=== PATIENT | male | born 1995 | race Caucasian/White ===

== ENCOUNTER 2016-12-18 22:41 | Emergency (ER) | payer BC, OTHER ==
--- NOTE | 2016-12-18 23:11 | EDM.PDOC ---
ED HPI GENERAL MEDICAL PROBLEM - General Chief Complaint: ENT Problem Stated Complaint: TOOTH PAIN Time Seen by Provider: 12/18/16 22:58 Source of Information: Reports: Patient, RN Notes Reviewed - History of Present Illness INITIAL COMMENTS - FREE TEXT/NARRATIVE: 21-year-old male comes in with severe dental pain. His left upper posterior molar has been chipped off for quite a long time but just started hurting him badly yesterday. He is not able to sleep much at all last night. Continued today. He is to obtain some relief with Orajel but does not last for very long. In throbbing is become more severe again tonight. No fever or chills. This has been pressure sensitive. No throat pain or swelling. Tooth/Teeth Pain Score (Numeric/FACES): 8 - Related Data Allergies Allergy/AdvReac Type Severity Reaction Status Date / Time No Known Allergies Allergy Verified 12/18/16 22:50 Home Meds: Home Meds . [No Known Home Meds] 12/18/16 [History] Social & Family History - Family History Family Medical History: Noncontributory - Tobacco Use Smoking Status *Q: Current Every Day Smoker Years of Tobacco use: 5 Packs/Tins Daily: 0.5 - Caffeine Use Caffeine Use: Reports: Coffee, Energy Drinks - Recreational Drug Use Recreational Drug Use: No ED ROS ENT - Review of Systems Review Of Systems: See Below Constitutional: Denies: Fever, Chills HEENT: Reports: Dental Pain. Denies: Throat Pain Respiratory: Denies: Shortness of Breath Cardiovascular: Denies: Chest Pain GI/Abdominal: Denies: Abdominal Pain, Nausea, Vomiting Musculoskeletal: Reports: No Symptoms Skin: Reports: No Symptoms Neurological: Reports: No Symptoms ED EXAM, ENT - Physical Exam Exam: See Below General Appearance: Alert, Moderate Distress Nose: Normal Inspection Mouth/Throat: Dental Pain (Left upper posterior molar tender to touch, there is some very mild swelling and inflammation of the boom medially. No drainage. Pharynx is normal, remainder teeth look normal.) Head: No: Facial Swelling, Facial Tenderness Neck: Supple, Non-Tender. No: Lymphadenopathy (L), Lymphadenopathy (R) Respiratory/Chest: No Respiratory Distress Neurological: Alert, Oriented, No Motor/Sensory Deficits Skin: Warm, Dry, Normal Color, No Rash Course - Vital Signs Last Recorded V/S: Last Vital Signs Temp 96.5 F 12/18/16 22:47 Pulse 90 12/18/16 22:47 Resp 18 12/18/16 22:47 BP 150/76 H 12/18/16 22:47 Pulse Ox 100 12/18/16 22:47 Departure - Departure Time of Disposition: 23:25 Disposition: Home, Self-Care 01 Condition: Fair Clinical Impression: Pain, dental - Discharge Information Instructions: Dental [facility] Referrals: PCP,None [Primary Care Provider] - Forms: ED Department Discharge Additional Instructions: Amoxicillin 2 500 mg tablets or 1000 mg twice daily, Aleve one tablet 3 times daily with food for pain and inflammation, Tylenol in between doses of Aleve for extra pain relief or hydrocodone 1-2 tabs every 4-6 hours as needed for severe pain, do not take Tylenol and hydrocodone at the same time, do not drive or work when taking hydrocodone, see your dentist as planned.
== END 2016-12-18 23:14 | disposition home or self-care (01) ==
LOC: JD.ED 22:41
DX: K08.89 Other specified disorders of teeth and supporting structures (principal); F17.210 Nicotine dependence, cigarettes, uncomplicated
CPT/HCPCS: 99283

== ENCOUNTER 2017-01-02 | Emergency (ER) | payer OTHER ==
--- NOTE | 2017-01-02 00:16 | EDM.PDOC ---
ED HPI GENERAL MEDICAL PROBLEM - General Chief Complaint: Chest Pain Stated Complaint: CHEST PAIN NUMBNESS Time Seen by Provider: 01/02/17 00:15 Source of Information: Reports: Patient, Family (girlfriend.) History Limitations: Reports: No Limitations - History of Present Illness INITIAL COMMENTS - FREE TEXT/NARRATIVE: 21-year-old male presents the ED with chief complaint of severe pain in the epigastrium left upper quadrant of the abdomen i.e. sharp and stabbing. Pain in the left side of his neck sore throat. Patient aware of increased anxiety over the last few days and monitor reveals a sinus tachycardia at 1 60/m. Clinically he is extremely anxious. He feels hot and flushed to palpation. He reports being on amoxicillin for almost 14 days for a dental infection left upper mandible which has reduce swelling and pain. Reports bowel function is been extremely sluggish last few days and last bowel movement was extremely painful and difficult to pass today hard stool. Associated poor appetite. He reports there was a of his sister's biological mother today due to renal failure and this is created increased anxiety. Has intermittent nausea with no vomiting. Reports appetite is been extremely poor. Onset: Today, Sudden Onset Date: 01/02/17 Onset Time: 23:00 Duration: Hour(s): Location: Reports: Neck (Sharp and stabbing. Pain left side of neck.), Chest, Abdomen Quality: Reports: Sharp, Stabbing Severity: Severe Improves with: Reports: None (10 out of 10.) Worsens with: Reports: Movement Context: Denies: Activity, Exercise, Lifting, Sick Contact, Trauma, Other Associated Symptoms: Reports: Chest Pain (Nonproductive for the most part see history of present illness), Cough, Headaches, Loss of Appetite, Malaise, Nausea /Vomiting, Shortness of Breath (Constipation), Other. Denies: Diaphoresis, Fever/Chills, Rash (Nausea without vomiting) Treatments [employer]: Reports: NSAIDS (Took Advil 2 days ago.) Bilateral Chest Pain Score (Numeric/FACES): 10 - Related Data Allergies Allergy/AdvReac Type Severity Reaction Status Date / Time No Known Allergies Allergy Verified 01/02/17 00:04 Home Meds: Home Meds Doxycycline [Vibramycin] 100 mg PO Q12HR #14 cap 01/02/17 [Rx] Past Medical History Cardiovascular History: Reports: Heart Murmur Other Cardiovascular History: As Social & Family History - Family History Family Medical History: Noncontributory - Tobacco Use Smoking Status *Q: Current Every Day Smoker Years of Tobacco use: 5 Packs/Tins Daily: 1 - Caffeine Use Caffeine Use: Reports: Coffee, Energy Drinks - Alcohol Use Days Per Week of Alcohol Use: 1 Number of Drinks Per Day: 5 Total Drinks Per Week: 5 - Recreational Drug Use Recreational Drug Use: Yes Drug Use in Last 12 Months: No Recreational Drug Type: Reports: Cocaine, Marijuana/Hashish (Almost daily due to prevention of headaches.) Recreational Drug Use Frequency: Not Used In Over 6 Months ED ROS GENERAL - Review of Systems Review Of Systems: See Below Constitutional: Reports: Fever, Chills, Malaise, Weakness, Fatigue, Decreased Appetite, Weight Loss HEENT: Reports: Dental Pain (Resolved with oral antibiotic amoxicillin of which she has a few tablets left.) Respiratory: Reports: Shortness of Breath, Pleuritic Chest Pain, Cough. Denies : Wheezing, Sputum, Hemoptysis (Nonproductive for the most part) Cardiovascular: Reports: Chest Pain (Sharp stabbing anterior precordium.), Lightheadedness, Palpitations. Denies: Blood Pressure Problem, Claudication ( Also in the epigastrium and left upper quadrant abdomen.), Edema, Orthopnea Endocrine: Reports: Fatigue GI/Abdominal: Reports: Abdominal Pain, Constipation, Decreased Appetite : Reports: No Symptoms Musculoskeletal: Reports: Neck Pain. 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 hyperventilation syndrome. O2 sat is 98% on room air.) Eye Exam: Bilateral Eye: Normal Inspection Ears: Normal External Exam, Normal TMs Throat/Mouth: Other (Oropharynx is diffusely inflamed more so on the left on the right. Appears to be secondary to) Head: Atraumatic ( smoking.), Normocephalic Neck: Normal Inspection, Supple, Non-Tender, Full Range of Motion. No: Lymphadenopathy (L), Lymphadenopathy (R) Respiratory/Chest: Lungs Clear, Normal Breath Sounds, Chest Non-Tender, Respiratory Distress (Moderate respiratory distress i.e. hyperventilation syndrome). No: No Accessory Muscle Use, Rhonchi, Wheezing, Stridor, Pleural Rub , Accessory Muscle Use, Retractions, Splinting Cardiovascular: No Edema, No Gallop, No Murmur (No murmur detected at elevated heart rate.), Tachycardia (Monitor reveals sinus tachycardia at 1 60/m.) Peripheral Pulses: 2+: Posterior Tibial (L), Posterior Tibial (R), Dorsalis Pedis (L), Dorsalis Pedis (R) GI/Abdominal: Tender, Abnormal Bowel Sounds (Mildly hyperactive bowel sounds.), Other (Scaphoid abdomen. Palpable left hemicolon.). No: No Organomegaly, No Abnormal Bruit, No Mass, Pelvis Stable, Distended, Guarding (Tenderness in the epigastrium only without rebound or guarding.), Rebound (Male) Exam: No Hernia, Normal Prostate Back Exam: Normal Inspection, Full Range of Motion. No: CVA Tenderness (L), CVA Tenderness (R) Extremities: Normal Inspection, Normal Range of Motion, Non-Tender Neurological: Oriented, CN II-XII Intact, Normal Cognition Psychiatric: Anxious (Severely anxious i.e. panic attack.) Skin Exam: Warm, Dry, Intact, Normal Color, No Rash EKG INTERPRETATION EKG Date: 01/02/17 Time: 00:10 Rhythm: Other Rate (Beats/Min): 156 [place]: Normal P-Wave: Present QRS: Other (Left ventricular hypertrophy pattern. Initial poor R-wave progression.) ST-T: Other (ST segment depression in leads 23 and aVF. There is an associated diffuse early repolarization pattern likely due to rate..) QT: Normal EKG Interpretation Comments: Second ECG done after his pain was improved. Heart rate is down to 84/m. Still shows a left ventricular hypertrophy pattern but is due to his stature of a very thin fellow. Short period ago. Mild ST segment elevation now in leads V4 to V6 and lead 2. The previously noted ST segment depression in the inferior wall and anteroseptal wall or are now gone once rate is down to normal. Course - Vital Signs Last Recorded V/S: Last Vital Signs Temp 37.1 C 01/02/17 00:05 Pulse 168 H 01/02/17 00:05 Resp 24 H 01/02/17 00:05 BP 163/87 H 01/02/17 00:05 Pulse Ox 98 01/02/17 00:05 - Orders/Labs/Meds Orders: Active Orders 24 hr Category Date Time Status EKG Documentation Completion [RC] STAT Care 01/02/17 00:28 Active EKG Documentation Completion [RC] STAT Care 01/02/17 01:30 Active Abdomen 1V Flat [CR] Stat Exams 01/02/17 00:28 Taken Chest 1V Frontal [CR] Stat Exams 01/02/17 00:27 Taken Labs: Laboratory Tests 01/02/17 01/02/17 01/02/17 Range/Units 00:10 00:10 00:10 WBC 11.97 H (4.23-9.07) K/mm3 RBC 5.37 (4.63-6.08) M/mm3 Hgb 16.5 (13.7-17.5) gm/L Hct 46.4 (40.1-51.0) % MCV 86.4 (79.0-92.2) fl MCH 30.7 (25.7-32.2) pg MCHC 35.6 H (32.2-35.5) g/dl RDW Std Deviation 41.1 (35.1-43.9) fL Plt Count 222 (163-337) K/mm3 MPV 10.4 (9.4-12.3) fl Neutrophils % (Manual) 65 H (40-60) % Band Neutrophils % 0 (0-10) % Lymphocytes % (Manual) 26 (20-40) % Atypical Lymphs % 0 % Monocytes % (Manual) 8 (2-10) % Eosinophils % (Manual) 0 L (0.8-7.0) % Basophils % (Manual) 1 (0.2-1.2) Platelet Estimate Adequate Plt Morphology Comment Normal RBC Morph Comment Normal Sodium 139 (136-145) mEq/L Potassium 3.2 L (3.5-5.1) mEq/L Chloride 100 (98-107) mEq/L Carbon Dioxide 22 (21-32) mEq/L Anion Gap 20.2 H (5-15) BUN 16 (7-18) mg/dL Creatinine 1.6 H (0.7-1.3) mg/dL Est Cr Clr Drug Dosing 73.71 mL/min Estimated GFR (MDRD) 54 (>60) mL/min BUN/Creatinine Ratio 10.0 L (14-18) Glucose 97 (74-106) mg/dL Calcium 9.6 (8.5-10.1) mg/dL Total Bilirubin 0.5 (0.2-1.0) mg/dL AST 22 (15-37) U/L ALT 28 (16-63) U/L Alkaline Phosphatase 74 (46-116) U/L CK-MB (CK-2) 1.0 (0-3.6) ng/ml Troponin I < 0.017 (0.00-0.056) ng/mL C-Reactive Protein 0.2 (<1.0) mg/dL Total Protein 7.5 (6.4-8.2) g/dl Albumin 4.5 (3.4-5.0) g/dl Globulin 3.0 gm/dL Albumin/Globulin Ratio 1.5 (1-2) Meds: Medications Discontinued Medications Generic Name Dose Route Start Last Admin Trade Name Freq PRN Reason Stop Dose Admin Hydromorphone HCl 0.5 mg 01/02/17 00:26 01/02/17 00:34 Dilaudid IVPUSH 01/02/17 00:27 0.5 mg ONETIME ONE Administration Sodium Chloride 1,000 mls @ 500 mls/hr 01/02/17 00:30 01/02/17 01:35 Normal Saline IV 999 mls/hr ASDIRECTED ALEJO Infusion Sodium Chloride 1,000 mls @ 999 mls/hr 01/02/17 01:45 01/02/17 02:08 Normal Saline IV 999 mls/hr ASDIRECTED ALEJO Administration Potassium Chloride 10 meq/ 100 mls @ 100 mls/hr 01/02/17 02:00 01/02/17 02:08 Premix IV 01/02/17 02:59 100 mls/hr ONETIME ONE Administration Dextrose/Sodium Chloride 1,000 mls @ 999 mls/hr 01/02/17 02:15 01/02/17 02:52 Dextrose 5%-Normal Saline IV 999 mls/hr ASDIRECTED ALEJO Administration Lorazepam 1 mg 01/02/17 00:26 01/02/17 00:34 Ativan IVPUSH 01/02/17 00:27 1 mg ONETIME ONE Administration Magnesium Citrate 210 ml 01/02/17 02:57 Citrate Of Magnesia PO 01/02/17 02:58 ONETIME ONE Metoclopramide HCl 7.5 mg 01/02/17 00:26 01/02/17 00:34 Reglan IVPUSH 01/02/17 00:27 7.5 mg ONETIME ONE Administration - Radiology Interpretation Free Text/Narrative:: 20-year-old male arrives in the ED with acute hyperventilation state and severe sinus tachycardia at 1 60/m. Patient appears to be extremely anxious and suffering a panic attack. He reports pain in the left side of his neck epigastrium and left precordium of his chest and left upper quadrant of his abdomen. History suggests constipation. He reports a in the family i.e. sisters biological mother today due to renal failure. He recognizes that he has been much more anxious last 2-3 days. He's been ill with dental infection and is on amoxicillin 2 weeks. Has a couple of tablets left. Swelling and dental pain resolved on antibiotics. Still having left-sided throat pain. Painful to swallow at times. Often feels like there is a tennis ball in his throat. History suggests constipation with painful bowel movement passage today but no vomiting for the last couple of days. ECG reveals sinus tachycardia at 1 60/m with ST segment depression to 3 aVF and be 5 and V6. Cannot rule out ischemia. He denies using any cocaine or methamphetamines. Does use marijuana almost daily. Plan 1 view chest x-ray one view of the abdomen to be done. Labs to be done. IV will be normal saline at 500 mils per hour. Will give Ativan 1 mg with Dilaudid 0.5 mg IV and Reglan 7.5 mg IV. - Re-Assessments/Exams Free Text/Narrative Re-Assessment/Exam: 01/02/17 01:24 Labs reveal a total white count of 11.97 with a normal differential 65% neutrophils no bands. Hemoglobin is 16.5 with hematocrit of 46.4 which suggests some degree of hemoconcentration. Platelet count 222,000. Sodium was 139 potassium low at 3.2. Chloride 100 bicarbonate is normal at 22.. Anion gap is elevated at 20.2. BUNs 16 creatinine is 1.6. EGFR is only 54. Pulse is 97. Calcium is 9.6.. Liver function normal CRP is less than 0.2. IV will be opened up to 999 mils per hour. It appears that he has not been eating well the last day or 2. 01/02/17 01:30 chest x-ray reveals hyperinflated lung choudhary bilaterally without any infiltrates or pneumothorax. KUB reveals increased stool left hemicolon and rectal vault. There is some air distending loops of small bowel but this is considered mild without any signs of obstruction. 01/02/17 01:49 second ECG reveals sinus rhythm at 84/m with a borderline short [place] interval. There is still a left ventricle hypertrophy pattern which is due to his stature i.e. very thin fellow. There is now mild ST segment elevation V4 to V6 and lead 2. The previously noted ST segment depression throughout the inferior wall and apical wall is now gone once rate was controlled. Plan he was going to require a couple of liters of IV fluid to improve his metabolic acidosis. He is also showing evidence of mild renal insufficiency. Serum creatinine of 1.6. Serum potassium is low at 3.2. 01/02/17 02:07 Patient reports feeling improved. Pain is gone. Patient advised of low potassium and mild metabolic acidosis. Will give 10 mg of KCl IV as he admits to very poor appetite, eating maybe once a day the last 3 days. Will require 2 L of IV fluids to make sure that metabolic acidosis is reversed. Still feels chilled but is improved with warm blankets. Cardiac markers did return in the normal range. 01/02/17 02:49 has completed 2 L of IV fluid but his potassium is still running and is now burning. Will hang third unit of D5 normal saline IV to dilute the potassium. Departure - Departure Time of Disposition: 03:14 Disposition: Home, Self-Care 01 Condition: Fair Clinical Impression: Non-cardiac chest pain, Dehydration, Panic attack as reaction to stress Abdominal pain Qualifiers: Abdominal location: epigastric Qualified Code(s): R10.13 - Epigastric pain Constipation Qualifiers: Constipation type: slow transit constipation Qualified Code(s): K59.01 - Slow transit constipation Prescriptions: Doxycycline [Vibramycin] 100 mg PO Q12HR #14 cap Instructions: Abdominal Pain, Adult, Constipation, Adult Referrals: PCP,None [Primary Care Provider] - Forms: ED Department Discharge Additional Instructions: Evaluation in the emergency room tonight due to acute onset of chest pain epigastric abdominal pain and acute panic attack. It appears that the pain precipitated a panic attack which is that of increased respiratory rate which will cause numbness and tingling in your hands and sometimes around the mouth. Increased adrenaline due to pain response caused her heart rate to be markedly elevated at 160/m when you arrived like you're running a marathon. This was associate with hyperventilation state. Labs reveal poor nutritional intake over the last few days with a decreased serum potassium and blood sugar. There was also evidence of a metabolic acidosis which major body is breaking down your fats for energy because of poor oral intake of food. Under great deal of stress last several days worsened by a in her family recently. Treatment in the ED with 2 L of IV fluid and IV potassium replacement. Initial treatment with Ativan 1 mg and Dilaudid 0.5 mg to relieve pain and anxiety. X-ray of the chest was normal. X-ray of the abdomen confirms constipation as you described with painful bowel movements due to hard stool. Suggest the use of oral Citroma later this morning when she wake up. Takes 7 ounces by mouth with 5 ounces of juice which will get her bowels working within an hour to an cleanse the bowel to prevent further rectal pain. Constipation issues continue suggest purchasing some MiraLAX powder which is [id number] at [facility] and taking 1 scoop daily. Once the initial anxiety state was brought under control your body to temperature did return to normal. White blood cell count is mildly elevated at the time of exam. Suggest stopping the amoxicillin and replacing with doxycycline tablet 100 mg twice daily for 7 more days to ensure infection is completely eradicated. Follow-up with personal doctor if any further problems occur. - My Orders Last 24 Hours: My Active Orders 01/02/17 00:27 Chest 1V Frontal [CR] Stat 01/02/17 00:28 EKG Documentation Completion [RC] STAT Abdomen 1V Flat [CR] Stat 01/02/17 01:30 EKG Documentation Completion [RC] STAT - Assessment/Plan Last 24 Hours: My Active Orders 01/02/17 00:27 Chest 1V Frontal [CR] Stat 01/02/17 00:28 EKG Documentation Completion [RC] STAT Abdomen 1V Flat [CR] Stat 01/02/17 01:30 EKG Documentation Completion [RC] STAT
[2017-01-02] MEDS ORDERED: LORazepam 2 MG/ML MDV IVPUSH ONE (00:26)
[2017-01-02] MEDS ORDERED: Metoclopramide 10 MG/2 ML SDV IVPUSH ONE (00:26)
[2017-01-02] MEDS ORDERED: HYDROmorphone 0.5 MG/0.5 ML Syringe IVPUSH ONE (00:26)
[2017-01-02] MEDS ORDERED: Sodium Chloride 0.9% 1,000 ML IV SCH ×2 (00:30→01:45)
[2017-01-02] MEDS ORDERED: Potassium Chloride 10 MEQ in Premix Bag 1 BAG IV ONE (02:00)
[2017-01-02] MEDS ORDERED: Dextrose 5%-0.9% NaCl 1,000 ML IV SCH (02:15)
[2017-01-02] MEDS ORDERED: Magnesium Citrate Solution 296 ML Bottle PO ONE (02:57)
--- NOTE | 2017-01-02 11:38 | CR ---
Chest: Frontal view of the chest was obtained. Comparison: No prior chest x-ray. Heart size and mediastinum are normal. Lungs are clear. Bony structures are grossly intact. Impression: 1. Nothing acute is identified on frontal chest x-ray. Diagnostic code #1
--- NOTE | 2017-01-02 11:38 | CR ---
Abdomen: Supine view of the abdomen was obtained. Comparison: No prior study. Bowel gas pattern appears normal. No abnormal calcifications or soft tissue abnormality is seen. Bony structures are within normal limits. Impression: 1. No abnormality is identified on supine abdominal x-ray. Diagnostic code #1
== END 2017-01-02 03:15 | disposition home or self-care (01) ==
LOC: JD.ED
DX: K59.01 Slow transit constipation (principal); E86.0 Dehydration; F43.0 Acute stress reaction; R07.89 Other chest pain; F17.210 Nicotine dependence, cigarettes, uncomplicated
CPT/HCPCS: 36415; 71010; 74000; 80053; 82553; 84484; 85025; 86140; 93005; 96361; 96365; 96375; 99285; A9270; J1170; J2060; J2765; J3480; J7040; J7042; 93010; 99284